=== PATIENT | female | born 1970 | race Caucasian/White ===

== ENCOUNTER 2018-07-06 06:25 | Day surgery (SDC) | payer BC ==
[~2018-07-06 06:25] MED LIST: Lactated Ringers 1,000 ML IV SCH; Lidocaine 1%/Sod Bicarbonate in NS 8.4% 1 ML Syringe IDERM PRN; Scopolamine 1.5 MG Transdermal Patch TRDERM PRN; Sodium Chloride 0.9% 10 ML Syringe FLUSH PRN
--- NOTE | 2018-07-06 07:02 | PCM.PREANE ---
Preanesthetic Assessment - Anesthesia/Transfusion/Family Hx Anesthesia History: Prior Anesthesia Without Reaction Family History of Anesthesia Reaction: No Transfusion History: Prior Transfusion Without Reaction - Review of Systems General: No Symptoms Pulmonary: No Symptoms Cardiovascular: No Symptoms Gastrointestinal: No Symptoms Neurological: No Symptoms Other: Reports: None - Physical Assessment NPO Status Date: 07/04/18 NPO Status Time: 23:30 Pulse: 69 O2 Sat by Pulse Oximetry: 100 Respiratory Rate: 16 Blood Pressure: 121/65 Temperature: 99.2 C ASA Class: 2 Mental Status: Alert & Oriented x3 Airway Class: Mallampati = 2 Dentition: Reports: Normal Dentition Thyro-Mental Finger Breadths: 2 Mouth Opening Finger Breadths: 3 Lungs: Clear to Auscultation, Normal Respiratory Effort Cardiovascular: Regular Rate, Regular Rhythm - Lab Values: Laboratory Last Values Urine HCG, Qual Negative (NEGATIVE) 07/06/18 06:40 - Allergies Allergies/Adverse Reactions: Allergies Allergy/AdvReac Type Severity Reaction Status Date / Time sulfamethoxazole Allergy Hives Verified 06/24/18 12:39 [From Bactrim] trimethoprim [From Bactrim] Allergy Hives Verified 06/24/18 12:39 cortisone AdvReac Hypoglycemi Verified 06/24/18 13:46 a - Anesthesia Plan Beta Mayela: Metoprolol Med Last Dose Date: 07/06/18 Med Last Dose Time: 06:15 - Acknowledgements Anesthesia Type Planned: MAC Pt an Appropriate Candidate for the Planned Anesthesia: Yes Alternatives and Risks of Anesthesia Discussed w Pt/Guardian: Yes Pt/Guardian Understands and Agrees with Anesthesia Plan: Yes PreAnesthesia Questionnaire HEENT History: Reports: Impaired Vision, Other (See Below) Other HEENT History: Glasses as needed for the computer/reading. Cardiovascular History: Reports: Other (See Below) Other Cardiovascular History: SVT, Palpitations -- Reports it has been controlled with Metoprolol Respiratory History: Reports: SOB (pt states when she gets anemic she gets SOB) Gastrointestinal History: Reports: None Genitourinary History: Reports: None INVOICE CHECKER History: Reports: Other (See Below) LMP (Approximate): Other (See Below) (LMP 06/08/17) Other OB/BYN History: PCOS, Endometrial Hyperplasia, D&C x2 Musculoskeletal History: Reports: Arthritis, Other (See Below) Other Musculoskeletal History: Right Shoulder Bone Spur Neurological History: Reports: Vertigo (pt states hasn't had issued for years since going to PT) Psychiatric History: Reports: None Endocrine/Metabolic History: Reports: Diabetes, Type II (pt states DM has resolved), Obesity/BMI 30+ Hematologic History: Reports: Anemia, Other (See Below) (Leukocytosis) - Past Surgical History HEENT Surgical History: Reports: Tonsillectomy Cardiovascular Surgical History: Reports: None Respiratory Surgical History: Reports: None GI Surgical History: Reports: Bariatric Procedure, Cholecystectomy Other GI Surgeries/Procedures: Gastric Bypass Female Surgical History: Reports: Other (See Below) Other Female Surgeries/Procedures: Urinary Tract Repair Neurological Surgical History: Reports: None Musculoskeletal Surgical History: Reports: Other (See Below) Other Musculoskeletal Surgeries/Procedures:: Left Foot Surgery, Left Humerus ORIF Dermatological Surgical History: Reports: None - SUBSTANCE USE Smoking Status *Q: Never Smoker Recreational Drug Use History: No - HOME MEDS Home Medications: Home Meds Biariatric Iron 60 mg PO DAILY 06/24/18 [History] Biotin 5,000 mcg PO DAILY 06/24/18 [History] Cyanocobalamin (Vitamin B12) [Vitamin B12] 1,000 mcg PO DAILY 06/24/18 [History] FA/Lycopene/Lut/MV,Ca,Iron,Min [Centrum] 1 tab PO DAILY 06/24/18 [History] Folic Acid mg PO DAILY 06/24/18 [History] Metoprolol Succinate [Toprol XL] 25 mg PO BID 06/24/18 [History] Protein Liquid 30 ml PO DAILY 06/24/18 [History] Vitamin D Gummy 1 tab PO DAILY 06/24/18 [History] - CURRENT (IN HOUSE) MEDS Current Meds: Current Medications Lactated Ringer's (Ringers, Lactated) 1,000 mls @ 125 mls/hr IV ASDIRECTED ANISH Stop: 07/06/18 23:00 Lidocaine/Sodium Bicarbonate (Buffered Lidocaine 1% In Ns 8.4%) 0.25 ml IDERM ONETIME PRN PRN Reason: Prior to IV Start Stop: 07/06/18 18:00 Sodium Chloride (Saline Flush) 10 ml FLUSH ASDIRECTED PRN PRN Reason: Keep Vein Open Stop: 07/06/18 18:00 Discontinued Medications Lactated Ringer's (Ringers, Lactated) 1,000 mls @ 125 mls/hr IV ASDIRECTED ANISH Stop: 06/27/18 23:00 Lactated Ringer's (Ringers, Lactated) 1,000 mls @ 125 mls/hr IV ASDIRECTED ANISH Stop: 06/29/18 23:00 Lactated Ringer's (Ringers, Lactated) 1,000 mls @ 125 mls/hr IV ASDIRECTED [facility] Stop: 07/04/18 23:00 Lidocaine/Sodium Bicarbonate (Buffered Lidocaine 1% In Ns 8.4%) 0.25 ml IDERM ONETIME PRN PRN Reason: Prior to IV Start Stop: 06/27/18 18:00 Lidocaine/Sodium Bicarbonate (Buffered Lidocaine 1% In Ns 8.4%) 0.25 ml IDERM ONETIME PRN PRN Reason: Prior to IV Start Stop: 06/29/18 18:00 Lidocaine/Sodium Bicarbonate (Buffered Lidocaine 1% In Ns 8.4%) 0.25 ml IDERM ONETIME PRN PRN Reason: Prior to IV Start Stop: 07/04/18 18:00 Scopolamine (Transderm-Scop) 1.5 mg TRDERM ONETIME PRN PRN Reason: Nausea Stop: 07/04/18 18:00 Sodium Chloride (Saline Flush) 10 ml FLUSH ASDIRECTED PRN PRN Reason: Keep Vein Open Stop: 06/27/18 18:00 Sodium Chloride (Saline Flush) 10 ml FLUSH ASDIRECTED PRN PRN Reason: Keep Vein Open Stop: 06/29/18 18:00 Sodium Chloride (Saline Flush) 10 ml FLUSH ASDIRECTED PRN PRN Reason: Keep Vein Open Stop: 07/04/18 18:00
[2018-07-06] MEDS: Lactated Ringers 1,000 ML IV SCH (07:05)
[2018-07-06] MEDS: Lidocaine 1%/Sod Bicarbonate in NS 8.4% 1 ML Syringe IDERM PRN (07:05)
[2018-07-06] MEDS ORDERED: Midazolam 1 MG/ML 2 ML SDV ONE (07:12)
[2018-07-06] MEDS ORDERED: Lidocaine 1% 2 ML ONE ×2 (07:12)
[2018-07-06] MEDS ORDERED: Propofol 200 MG/20 ML SDV ONE (07:12)
[2018-07-06] MEDS ORDERED: fentaNYL 100 MCG/2 ML SDV ONE (07:13)
[2018-07-06] MEDS: Lidocaine 1% 30 ML SDV ONE (08:17)
[2018-07-06] MEDS: Heparin Sodium 5,000 Units/ML Vial ONE (08:18)
[2018-07-06] MEDS: Bacitracin Oint 15 GM Tube ONE (08:26)
--- NOTE | 2018-07-06 08:32 | PCM.OPNOTE ---
- General Post-Op/Procedure Note Date of Surgery/Procedure: 07/06/18 Operative Procedure(s): bone marrow biopsy and aspiration right posterior iliac crest Pre Op Diagnosis: leukocytosis Post-Op Diagnosis: Same Anesthesia Technique: MAC Primary Surgeon: Candido Grey EBL in mLs: 0 Complications: None Condition: Good
--- NOTE | 2018-07-06 08:38 | PCM48HPAN ---
Post Anesthesia Note - EVALUATION WITHIN 48HRS OF ANESTHETIC Vital Signs in Normal Range: Yes Patient Participated in Evaluation: Yes Respiratory Function Stable: Yes Airway Patent: Yes Cardiovascular Function Stable: Yes Hydration Status Stable: Yes Pain Control Satisfactory: Yes Nausea and Vomiting Control Satisfactory: Yes Mental Status Recovered: Yes Pulse Rate: 63 SaO2: 97 Resp Rate: 16 Temperature: 99.2 C Blood Pressure: 105/68 Pulse Rate: 63 - COMMENTS/OBSERVATIONS Free Text/Narrative:: Pt resting quietly. VSS. HOB elevated. no c/o
--- NOTE | 2018-07-07 08:09 | OR ---
DATE OF OPERATION: 07/06/2018 SURGEON: Candido Grey MD PREOPERATIVE DIAGNOSIS: Leukocytosis. POSTOPERATIVE DIAGNOSIS: Leukocytosis. OPERATION PERFORMED: Right posterior iliac crest bone marrow biopsy and aspiration, done under IV sedation and local anesthetic. DESCRIPTION OF PROCEDURE: The patient was taken to the endoscopy room, placed in a supine position, connected to monitoring equipment, given IV sedation, placed in the left lateral position. The right posterior iliac crest was marked, prepped with chlorhexidine and alcohol, and draped off in a sterile fashion. Skin was anesthetized with 1% Xylocaine as was the deeper tissues. An incision was made, Jamshidi needle was then inserted to the bone, and a bone marrow aspirate was then obtained. The trocar was removed and a bone marrow biopsy was thus obtained and sent to pathology. The patient tolerated the procedure, pressure was placed, and sent to recovery room in a stable condition, will be followed up with the oncologist. ANESTHESIA: ESTIMATED BLOOD LOSS: MMODAL /[id number]
== END 2018-07-06 09:05 | disposition home or self-care (01) ==
LOC: JD.SDS 06:25
PROVIDERS: ATTEND Surgery
DX: D72.829 Elevated white blood cell count, unspecified (principal); E11.9 Type 2 diabetes mellitus without complications; E66.01 Morbid (severe) obesity due to excess calories; Z68.42 Body mass index [BMI] 45.0-49.9, adult; E28.2 Polycystic ovarian syndrome; Z79.899 Other long term (current) drug therapy; Z88.8 Allergy status to other drugs, medicaments and biological substances
CPT/HCPCS: 38222; 81025; 85007; 85027; 85046; A9270; J1644; J2001; J2250; J2704; J3010; J7120; 01112; 36415

== ENCOUNTER 2018-08-05 06:29 | Day surgery (SDC) | payer BC ==
[~2018-08-05 06:29] MED LIST changes: -Scopolamine 1.5 MG Transdermal Patch TRDERM PRN
--- NOTE | 2018-08-05 07:19 | PCM.PREANE ---
Preanesthetic Assessment - Anesthesia/Transfusion/Family Hx Anesthesia History: Prior Anesthesia Without Reaction Family History of Anesthesia Reaction: No Transfusion History: Prior Transfusion Without Reaction - Review of Systems General: No Symptoms Pulmonary: No Symptoms Cardiovascular: Dyspnea on Exertion Gastrointestinal: Abdominal Pain Neurological: No Symptoms Other: Reports: None - Physical Assessment NPO Status Date: 08/04/18 NPO Status Time: 23:30 Pulse: 71 O2 Sat by Pulse Oximetry: 99 Respiratory Rate: 16 Blood Pressure: 122/64 Temperature: 36.6 C Vital Signs: Last Vital Signs Temp 36.6 C 08/05/18 06:40 Pulse 71 08/05/18 06:40 Resp 16 08/05/18 06:40 BP 122/64 08/05/18 06:40 Pulse Ox 99 08/05/18 06:40 Height: 1.57 m Weight: 106.594 kg ASA Class: 3 Mental Status: Alert & Oriented x3 Airway Class: Mallampati = 2 Dentition: Reports: Normal Dentition Thyro-Mental Finger Breadths: 2 Mouth Opening Finger Breadths: 2 ROM/Head Extension: Full Lungs: Clear to Auscultation, Normal Respiratory Effort Cardiovascular: Regular Rate, Regular Rhythm - Lab Values: Laboratory Last Values Urine HCG, Qual Negative (NEGATIVE) 08/05/18 Unknown - Allergies Allergies/Adverse Reactions: Allergies Allergy/AdvReac Type Severity Reaction Status Date / Time sulfamethoxazole Allergy Hives Verified 08/04/18 14:21 [From Bactrim] trimethoprim [From Bactrim] Allergy Hives Verified 08/04/18 14:21 cortisone AdvReac Hypoglycemi Verified 08/04/18 14:21 a - Blood Blood Available: No Product(s) Available: None - Anesthesia Plan Pre-Op Medication Ordered: Beta Mayela Beta Mayela: Metoprolol Med Last Dose Date: 08/04/18 Med Last Dose Time: 10:30 - Acknowledgements Anesthesia Type Planned: MAC Pt an Appropriate Candidate for the Planned Anesthesia: Yes Alternatives and Risks of Anesthesia Discussed w Pt/Guardian: Yes Pt/Guardian Understands and Agrees with Anesthesia Plan: Yes PreAnesthesia Questionnaire HEENT History: Reports: Impaired Vision, Other (See Below) Other HEENT History: Glasses as needed for the computer/reading. Cardiovascular History: Reports: Other (See Below) Other Cardiovascular History: SVT, Palpitations -- Reports it has been controlled with Metoprolol Respiratory History: Reports: SOB Gastrointestinal History: Reports: None Genitourinary History: Reports: None GIG TENDER History: Reports: Other (See Below) Other OB/BYN History: PCOS, Endometrial Hyperplasia, D&C x2 Musculoskeletal History: Reports: Arthritis, Other (See Below) Other Musculoskeletal History: Right Shoulder Bone Spur Neurological History: Reports: Vertigo Psychiatric History: Reports: None Endocrine/Metabolic History: Reports: Diabetes, Type II, Obesity/BMI 30+ Hematologic History: Reports: Anemia, Other (See Below) - Past Surgical History HEENT Surgical History: Reports: Tonsillectomy Cardiovascular Surgical History: Reports: None Respiratory Surgical History: Reports: None GI Surgical History: Reports: Bariatric Procedure, Cholecystectomy Other GI Surgeries/Procedures: Gastric Bypass Female Surgical History: Reports: Other (See Below) Other Female Surgeries/Procedures: Urinary Tract Repair Neurological Surgical History: Reports: None Musculoskeletal Surgical History: Reports: Other (See Below) Other Musculoskeletal Surgeries/Procedures:: Left Foot Surgery, Left Humerus ORIF Dermatological Surgical History: Reports: None - SUBSTANCE USE Smoking Status *Q: Never Smoker Tobacco Use Within Last Twelve Months: No Second Hand Smoke Exposure: No Days Per Week of Alcohol Use: 0 Number of Drinks Per Day: 0 Total Drinks Per Week: 0 Recreational Drug Use History: No - HOME MEDS Home Medications: Home Meds Biariatric Iron 60 mg PO DAILY 06/24/18 [History] Biotin 5,000 mcg PO DAILY 06/24/18 [History] Cyanocobalamin (Vitamin B12) [Vitamin B12] 1,000 mcg PO DAILY 06/24/18 [History] FA/Lycopene/Lut/MV,Ca,Iron,Min [Centrum] 1 tab PO DAILY 06/24/18 [History] Folic Acid 1 mg PO DAILY 06/24/18 [History] Metoprolol Succinate [Toprol XL] 25 mg PO BID 06/24/18 [History] Protein Liquid 30 ml PO DAILY 06/24/18 [History] Vitamin D Gummy 1 tab PO DAILY 06/24/18 [History] - CURRENT (IN HOUSE) MEDS Current Meds: Current Medications Lactated Ringer's (Ringers, Lactated) 1,000 mls @ 125 mls/hr IV ASDIRECTED ANISH Last Admin: 08/05/18 06:55 Dose: 125 mls/hr Lidocaine/Sodium Bicarbonate (Buffered Lidocaine 1% In Ns 8.4%) 0.25 ml IDERM ONETIME PRN PRN Reason: Prior to IV Start Stop: 08/05/18 23:00 Last Admin: 08/05/18 06:55 Dose: 0.25 ml Sodium Chloride (Saline Flush) 10 ml FLUSH ASDIRECTED PRN PRN Reason: Keep Vein Open Stop: 08/05/18 23:00
[2018-08-05] MEDS ORDERED: Propofol 200 MG/20 ML SDV ONE ×2 (07:27→07:44)
[2018-08-05] MEDS ORDERED: Midazolam 1 MG/ML 2 ML SDV ONE (07:27)
[2018-08-05] MEDS ORDERED: fentaNYL 100 MCG/2 ML SDV ONE (07:27)
[2018-08-05] MEDS ORDERED: Lidocaine 1% PF 2 ML SDV ONE (07:35)
--- NOTE | 2018-08-05 08:16 | PCM.OPNOTE ---
- General Post-Op/Procedure Note Date of Surgery/Procedure: 08/05/18 Operative Procedure(s): Esophagogastroduodenoscopy with cold forceps biopsy and Colonoscopy with cold forceps biopsy Findings: Mild Gastritis, 2 mm sigmoid polyp, s/p Karlos en Y Gastric Bypass Pre Op Diagnosis: Positive Fecal Immunochemical Test Post-Op Diagnosis: Mild Gastritis, 2 mm sigmoid polyp, status post Karlos en Y gastric bypass surgery Anesthesia Technique: MAC Primary Surgeon: Cezar Campbell Anesthesia Provider: Fan Martínez EBL in mLs: 5 Complications: None Condition: Good Free Text/Narrative:: After the patient gave verbal and written consent she was placed on blood pressure and pulse ox monitoring. She was given iv sedation which she tolerated well. The olympus gastroscope was inserted in the oropharynx and passed down to the jejunum. The scope was slowly withdrawn and mucosal surfaces were imaged. Karlos en Y gastric bypass anatomy was noted and surgical anastamoses were in good condition with no active bleeding. There was mild gastritis noted in the stomach pouch and cold forceps biopsies were taken. There was good hemostasis at the end of the procedure. GE junction was imaged and was normal to appearance. The scope was then withdrawn. The patient was then prepped for colonoscopy. The olympus colonoscope was inserted per rectum and advanced to the cecum without difficulty. The ileocecal valve and appendiceal orfice were imaged documenting cecal intubation. The scope was slowly withdrawn. The views were good, the prep was good. A small 2 mm sigmoid polyp was noted and removed with cold forceps biopsy. There was good hemostasis at the end of the procedure. THe scope was then retroflexed in the rectum and then removed. THe patient left the room in good condition and there were no complications.
== END 2018-08-05 08:55 | disposition home or self-care (01) ==
LOC: JD.SDS 06:29
PROVIDERS: ATTEND Family Medicine
DX: K29.50 Unspecified chronic gastritis without bleeding (principal); R19.5 Other fecal abnormalities; D12.5 Benign neoplasm of sigmoid colon; E11.9 Type 2 diabetes mellitus without complications; D50.9 Iron deficiency anemia, unspecified; E66.01 Morbid (severe) obesity due to excess calories; Z68.41 Body mass index [BMI] 40.0-44.9, adult; Z98.84 Bariatric surgery status; Z79.899 Other long term (current) drug therapy; Z88.8 Allergy status to other drugs, medicaments and biological substances; Z88.1 Allergy status to other antibiotic agents; Z88.2 Allergy status to sulfonamides
CPT/HCPCS: 43239; 45380; 81025; J2001; J2250; J2704; J3010; J7120; 00813

== ENCOUNTER 2020-04-15 06:53 | Day surgery (SDC) | payer BC ==
--- NOTE | 2020-04-15 07:23 | PCM.PREANE ---
Preanesthetic Assessment - Anesthesia/Transfusion/Family Hx Anesthesia History: Prior Anesthesia Without Reaction Family History of Anesthesia Reaction: No Transfusion History: Prior Transfusion Without Reaction - Review of Systems General: No Symptoms Pulmonary: No Symptoms Cardiovascular: No Symptoms Gastrointestinal: Abdominal Pain Neurological: No Symptoms Other: Reports: None - Physical Assessment NPO Status Date: 04/14/20 NPO Status Time: 23:45 ASA Class: 3 Mental Status: Alert & Oriented x3 Airway Class: Mallampati = 3 Dentition: Reports: Normal Dentition Thyro-Mental Finger Breadths: 2 Mouth Opening Finger Breadths: 3 ROM/Head Extension: Full Lungs: Clear to Auscultation, Normal Respiratory Effort Cardiovascular: Regular Rate, Regular Rhythm - Allergies Allergies/Adverse Reactions: Allergies Allergy/AdvReac Type Severity Reaction Status Date / Time hydrochlorothiazide Allergy Cannot Verified 04/11/20 19:17 Remember sulfamethoxazole Allergy Hives Verified 04/11/20 19:17 [From Bactrim] trimethoprim [From Bactrim] Allergy Hives Verified 04/11/20 19:17 cortisone AdvReac Hypoglycemi Verified 04/11/20 19:17 a - Anesthesia Plan Beta Mayela: Metoprolol Med Last Dose Date: 04/15/20 Med Last Dose Time: 06:30 - Acknowledgements Anesthesia Type Planned: MAC Pt an Appropriate Candidate for the Planned Anesthesia: Yes Alternatives and Risks of Anesthesia Discussed w Pt/Guardian: Yes Pt/Guardian Understands and Agrees with Anesthesia Plan: Yes PreAnesthesia Questionnaire HEENT History: Reports: Impaired Vision, Other (See Below) Other HEENT History: Glasses as needed for the computer/reading. Cardiovascular History: Reports: Arrhythmia, High Cholesterol, Other (See Below) Other Cardiovascular History: SVT, Palpitations -- Reports it has been controlled with Metoprolol Respiratory History: Reports: SOB Gastrointestinal History: Reports: None Genitourinary History: Reports: None EMBEDDED SYSTEMS DESIGNER History: Reports: Polycystic Ovaries, Other (See Below) Other OB/BYN History: PCOS, Endometrial Hyperplasia, D&C x2 Musculoskeletal History: Reports: Arthritis, Other (See Below) Other Musculoskeletal History: Right Shoulder Bone Spur Neurological History: Reports: Vertigo Psychiatric History: Reports: None Endocrine/Metabolic History: Reports: Obesity/BMI 30+ Hematologic History: Reports: Anemia, Other (See Below) Immunologic History: Reports: None Oncologic (Cancer) History: Reports: None Dermatologic History: Reports: None - Past Surgical History HEENT Surgical History: Reports: Tonsillectomy Cardiovascular Surgical History: Reports: None Respiratory Surgical History: Reports: None GI Surgical History: Reports: Bariatric Procedure, Cholecystectomy, Colonoscopy, EGD Other GI Surgeries/Procedures: Gastric Bypass Female Surgical History: Reports: Breast Biopsy, Other (See Below) Other Female Surgeries/Procedures: Urinary Tract Repair Endocrine Surgical History: Reports: None Neurological Surgical History: Reports: None Musculoskeletal Surgical History: Reports: Other (See Below) Other Musculoskeletal Surgeries/Procedures:: Left Foot Surgery, Left Humerus ORIF Oncologic Surgical History: Reports: Bone Marrow Aspiration Dermatological Surgical History: Reports: None - SUBSTANCE USE Tobacco Use Status *Q: Never Tobacco User Recreational Drug Use History: No - HOME MEDS Home Medications: Home Meds Metoprolol Succinate [Kapspargo Sprinkle] 25 mg PO DAILY 04/11/20 [History] Multivit-Min/Iron/Folic Acid/K [Bariatric Mv-Iron 45 mg Cap] 1 cap PO DAILY 04/11/20 [History] Naproxen Sodium [Aleve] 220 - 440 mg PO Q6H PRN 04/11/20 [History] Omeprazole Magnesium [Prilosec Otc] 20 mg PO QAM 04/11/20 [History] Protein Supplement [Promod] 30 ml PO DAILY 04/11/20 [History] Rosuvastatin [Crestor] 10 mg PO DAILY 04/11/20 [History] Spironolactone 50 mg PO DAILY 04/11/20 [History] busPIRone HCl [Buspirone HCl] 7.5 mg PO DAILY 04/11/20 [History] - CURRENT (IN HOUSE) MEDS Current Meds: Current Medications Lactated Ringer's (Ringers, Lactated) 1,000 mls @ 125 mls/hr IV ASDIRECTED ANISH Stop: 04/15/20 23:00 Lidocaine/Sodium Bicarbonate (Buffered Lidocaine 1% In Ns 8.4%) 0.25 ml IDERM ONETIME PRN PRN Reason: Prior to IV Start Stop: 04/15/20 18:00 Sodium Chloride (Saline Flush) 10 ml FLUSH ASDIRECTED PRN PRN Reason: Keep Vein Open Stop: 04/15/20 18:00
[2020-04-15] MEDS ORDERED: Lidocaine 1% 4 ML ONE (07:35)
[2020-04-15] MEDS ORDERED: Propofol 200 MG/20 ML SDV ONE ×2 (07:35→07:36)
[2020-04-15] MEDS ORDERED: fentaNYL 100 MCG/2 ML SDV ONE (08:27)
--- NOTE | 2020-04-15 09:06 | PCM48HPAN ---
Post Anesthesia Note - EVALUATION WITHIN 48HRS OF ANESTHETIC Vital Signs in Normal Range: Yes Patient Participated in Evaluation: Yes Respiratory Function Stable: Yes Airway Patent: Yes Cardiovascular Function Stable: Yes Hydration Status Stable: Yes Pain Control Satisfactory: Yes Nausea and Vomiting Control Satisfactory: Yes Mental Status Recovered: Yes Vital Signs: Last Vital Signs Temp 36.2 C 04/15/20 07:15 Pulse 86 04/15/20 07:15 Resp 20 04/15/20 07:15 BP 120/72 04/15/20 07:15 Pulse Ox 96 04/15/20 07:15
--- NOTE | 2020-04-15 13:23 | PROC ---
DATE OF OPERATION: 04/15/2020 SURGEON: Ivon Albarado MD PREOPERATIVE DIAGNOSES: 1. Epigastric pain. 2. Dysphagia. 3. Early satiety. POSTOPERATIVE DIAGNOSES: Possible small hiatal hernia, otherwise, normal gastric pouch, gastrojejunostomy, anastomosis, and alimentary limb. PROCEDURE: Esophagogastroduodenoscopy. ESTIMATED BLOOD LOSS: Minimal. ANESTHESIA: Monitored anesthesia care. COMPLICATIONS: None. INDICATIONS AND CONSENT: Ms. Smith is a 49-year-old female who has a history of Karlos-en-Y gastric bypass several years ago. The patient had lost some weight but has regained most of the weight back. In the last month or 2, the patient has been having new epigastric pain, feelings of bloating, and early satiety. She presented to my clinic for evaluation. I recommended she undergo an upper GI and EGD. She underwent an upper GI that showed mild reflux and mild narrowing at C5-C6 area and some thickened mucosa in the distal esophagus. Due to these findings, I recommended we proceed with an EGD with possible dilation. We discussed the risks, benefits, and alternatives, and informed consent was obtained. DETAILS OF PROCEDURE: The patient was doing well in the preop area. She was taken to the procedure room, placed in left lateral decubitus position. Time-out was performed, and then monitored anesthesia care was induced. We began by placing a bite block, and scope was placed into the mouth, then advanced into the esophagus with clear visualization. The esophagus appeared normal. The GE junction appeared normal and regular. The distal esophagus had slight congestion but no erosion. We went into the gastric pouch that appeared normal. There were no inflammation or ulcers. Gastrojejunostomy anastomosis was normal and wide open. We entered the alimentary limb, and the blind pouch was normal. Alimentary limb was navigated for some length, and it appeared to be completely normal. There were no lesions or any areas concerning for inflammation. Unfortunately, we were not able to get to the jejunojejunostomy anastomosis or the hepatobiliary limb for that matter because the scope was short. Then, we withdrew back into the pouch. We reinvestigated the pouch. At the very top of the pouch, it appeared to have a little pocket concerning for a small hiatal hernia. However, this was unclear as it is possible this was part of the cardia that was left at the time of RNY bypass. At this point, we biopsied the GJ anastomosis, the gastric pouch as well as the distal esophagus for pathologic examination to rule out active inflammation or infection such as H. pylori. Then, we went back into the pouch. Air was suctioned out at this time, and the scope was withdrawn. The entire esophagus appeared normal. This marked the end of the procedure. The patient was awakened from monitored anesthesia care and taken to the PACU for further recovery. This exam does not completely explain the patient's symptoms except that the patient may have a small hiatal hernia that may explain at least part of the symptoms. Due to these equivocal results, I will refer the patient to bariatric surgery at [place] for further evaluation. REGINE /[id number] MTDD
== END 2020-04-15 09:50 | disposition home or self-care (01) ==
LOC: JD.SDS 06:53
PROVIDERS: ATTEND Surgery
DX: I78.1 Nevus, non-neoplastic (principal); K21.9 Gastro-esophageal reflux disease without esophagitis; R13.10 Dysphagia, unspecified; E66.01 Morbid (severe) obesity due to excess calories; E11.9 Type 2 diabetes mellitus without complications; E78.00 Pure hypercholesterolemia, unspecified; Z98.0 Intestinal bypass and anastomosis status; Z98.890 Other specified postprocedural states; Z90.49 Acquired absence of other specified parts of digestive tract; Z79.899 Other long term (current) drug therapy; Z88.8 Allergy status to other drugs, medicaments and biological substances; Z88.1 Allergy status to other antibiotic agents; Z68.42 Body mass index [BMI] 45.0-49.9, adult
CPT/HCPCS: 43239; 81025; J2001; J2704; J3010; J7120; 00731

== ENCOUNTER 2021-08-06 06:16 | Day surgery (SDC) | payer BC ==
[~2021-08-06 06:16] MED LIST changes: -Lactated Ringers 1,000 ML IV SCH; +Lidocaine 1% 6 ML ONE; -Lidocaine 1%/Sod Bicarbonate in NS 8.4% 1 ML Syringe IDERM PRN; +Midazolam 1 MG/ML 2 ML SDV ONE; +Propofol 200 MG/20 ML SDV ONE; +Rocuronium 50 MG/5 ML Vial ONE; +Sodium Chloride 0.9% 10 ML Syringe FLUSH SCH; +fentaNYL 100 MCG/2 ML SDV ONE
[2021-08-06] MEDS ORDERED: Ropivacaine 0.5% 5 MG/ML 30 ML SDV ONE (06:20)
[2021-08-06] MEDS ORDERED: EPINEPHrine 1 MG/ML SDV ONE (06:21)
[2021-08-06] MEDS: Lidocaine 1%/Sod Bicarbonate in NS 8.4% 1 ML Syringe IDERM PRN (06:33)
[2021-08-06] MEDS: Lactated Ringers 1,000 ML IV SCH (06:33)
[2021-08-06] MEDS: Pregabalin 25 MG Cap PO SCH (06:38)
[2021-08-06] MEDS: oxyCODONE ER 10 MG TAB.ER PO SCH (06:38)
[2021-08-06] MEDS: Acetaminophen 325 MG Tab PO SCH (06:38)
[2021-08-06] MEDS ORDERED: Midazolam 1 MG/ML 2 ML SDV ONE (06:44)
[2021-08-06] MEDS ORDERED: Succinylcholine/Sod PF 100 MG/5 ML SYRINGE IV ONE (07:45)
[2021-08-06] MEDS ORDERED: ceFAZolin 1 GM Vial ONE (08:07)
[2021-08-06] MEDS ORDERED: Lactated Ringers 1,000 ML ONE (08:21)
[2021-08-06] MEDS ORDERED: Ondansetron 4 MG/2 ML SDV IVPUSH PRN (08:46)
[2021-08-06] MEDS ORDERED: fentaNYL 100 MCG/2 ML SDV IVPUSH PRN (08:46)
[2021-08-06] MEDS ORDERED: Ondansetron 4 MG/2 ML SDV ONE (09:17)
[2021-08-06] MEDS: Vancomycin 1 GM SDV ONE (09:19)
[2021-08-06] MEDS: oxyCODONE 5 MG Tab PO PRN (11:05)
[2021-08-06] MEDS: Cyclobenzaprine 10 MG Tab PO ONE (11:05)
[2021-08-06 12:50] VITALS: BP 129/62
[2021-08-06 13:29] VITALS: PULSE 78
== END 2021-08-06 13:15 | disposition home or self-care (01) ==
LOC: JD.SDS 06:16
PROVIDERS: ATTEND Orthopaedic Surgery
DX: M19.012 Primary osteoarthritis, left shoulder (principal); T84.84XA Pain due to internal orthopedic prosthetic devices, implants and grafts, initial encounter; E66.01 Morbid (severe) obesity due to excess calories; E78.5 Hyperlipidemia, unspecified; N95.1 Menopausal and female climacteric states; Z88.8 Allergy status to other drugs, medicaments and biological substances; Z88.1 Allergy status to other antibiotic agents; Z79.899 Other long term (current) drug therapy; Z79.82 Long term (current) use of aspirin; Z98.890 Other specified postprocedural states; Z68.42 Body mass index [BMI] 45.0-49.9, adult
CPT/HCPCS: 01638; 64415; 73020-26-RT; 73020-RT; 76000; 76000-26; 76942; 97161-GP; A9270-GY; C1713; C1769; C1776; J0171; J0330; J0690; J2250; J2405; J2704; J2795; J3010; J3370; J7120